=== PATIENT | male | born 1950 | race Caucasian/White ===

== ENCOUNTER 2016-09-07 07:48 | Inpatient (IN) | payer MEDICARE ==
[2016-09-01 14:50] LABS: HEMOGLOBIN 13.3 g/dL (13.6-17.8)
[2016-09-01 14:52] LABS: HEMATOCRIT 39.2 % (40.0-51.0)
[2016-09-01 15:05] LABS: BUN (BLOOD UREA NITROGEN) 28 MG/DL (6-23); CALCIUM, SERUM 9.3 MG/DL (8.5-10.4); CHLORIDE, SERUM 103 MMOL/L (96-112); CO2 (CARBON DIOXIDE) 30 MMOL/L (24-34); CREATININE 1.75 MG/DL (0.70-1.30); GFR AFRICAN AMERICAN 46 ML/MIN (>=60); GFR NON AFRICAN AMERICAN 39 ML/MIN (>=60); POTASSIUM, SERUM 4.8 MMOL/L (3.5-5.3); SODIUM, SERUM 139 MMOL/L (135-148)
[2016-09-01 15:06] LABS: GLUCOSE, SERUM 180 MG/DL (60-99)
--- NOTE | ~2016-09-07 | EEG ---
Electroencephalogram [place] [address] [place]. [address] NAME: CLAUDIA GUILLEN : 49 STATUS : DIS IN PAT#: [id number] AGE: 66 ADM/REG DATE : 09/07/16 MR#: [id number] REPORT SERV DATE: 09/27/16 DICTATED BY: JUVENTINO FOURNIER DATE: 09/27/16 REPORT STATUS : Draft TRANSCRIBED BY: MODL DATE: 09/27/16 ELECTROENCEPHALOGRAPHY REPORT REQUESTING PHYSICIAN: Momo Andino D.O. INTERPRETING PHYSICIAN: Juventino Fournier MD. EEG NUMBER: [id number]. AGE: 66. REASON FOR EEG: Abnormal previous EEG comparison. 23 surface electrodes, 10-20 international placement was used. The patient was noted to be drowsy and asleep throughout the study. Photic stimulation was performed. REASON FOR EEG: Hypersomnolence, rule out seizures. 23 surface electrodes, 10-20 international placement was used. The background activity consisted of moderate voltage to higher voltage theta range activity of 6 cycles per second located in the posterior head regions and the patient appeared extremely somnolent, snored throughout the recording. During the more alert portion of the recording, his background activity was 8 cycles per second. No significant asymmetry of cerebral activity was present. No paroxysmal epileptiform features were noted during this study. IMPRESSION: THE PATIENT APPEARED TO BE DROWSY AND ASLEEP THROUGHOUT THE RECORDING. PERSISTENT SNORING WAS SEEN, SUGGESTIVE OF PRESENCE OF UNDERLYING SLEEP APNEA. NO PAROXYSMAL OR EPILEPTIFORM ACTIVITY WAS SEEN. RECOMMEND FORMAL POLYSOMNOGRAPHY STUDY TO RULE OUT OBSTRUCTIVE SLEEP APNEA. CLINICAL CORRELATION IS RECOMMENDED. CORNELIA/GUZMAN Juventino Fournier MD / [id number] CC: Samantha Howard M.D.
--- NOTE | ~2016-09-07 | EEG ---
Electroencephalogram [place] [place]. [address] NAME: CLAUDIA GUILLEN : 49 STATUS : ADM IN PAT#: [id number] AGE: 66 ADM/REG DATE : 09/07/16 MR#: [id number] REPORT SERV DATE: 09/09/16 DICTATED BY: JUVENTINO FOURNIER DATE: 09/09/16 REPORT STATUS : Draft TRANSCRIBED BY: MODL DATE: 09/09/16 REQUESTING PHYSICIAN: Dr. Juventino Fournier. INTERPRETING PHYSICIAN: Dr. Juventino Fournier. EEG NUMBER: #[id number], repeat EEG. LOCATION OF THE PATIENT: [facility] bed 10. Repeat EEG was obtained to compare to the study performed on 09/08/2016, which showed presence of severe encephalopathy and paroxysmal seizure activity status epilepticus. Today's EEG of 09/09/2016 will be described below. DESCRIPTION: The background activity consisted of poorly organized, moderate to high voltage 4-6 cycles per second located in the posterior head regions. The salient feature of this EEG was presence of continuous slowing of cerebral activity with biphasic and triphasic waveforms predominantly seen in anterior head regions. No significant asymmetry of cerebral activity was present. The patient did not show any evidence of tonic-clonic activity during this EEG. Photic stimulation did not produce changes or additional abnormalities. The patient appeared asleep through most of the study, intermittent apneas were observed. The patient's cardiac monitor technician showed sinus rhythm of approximately 82 beats per minute. IMPRESSION: MARKEDLY ABNORMAL EEG CHARACTERIZED BY PRESENCE OF DIFFUSE SLOWING OF CEREBRAL ACTIVITY, PRESENCE OF BIPHASIC AND TRIPHASIC WAVEFORMS. NO SIGNIFICANT ASYMMETRY OF CEREBRAL ACTIVITY WAS PRESENT SOME IMPROVEMENT COMPARED TO THE STUDY OF 09/08/2016 WAS OBSERVED. THIS EEG IS COMPATIBLE WITH PRESENCE OF DIFFUSE CEREBRAL DYSFUNCTION- ENCEPHALOPATHY MOST LIKELY OF METABOLIC ORIGIN. CLINICAL CORRELATION IS RECOMMENDED. CORNELIA/GUZMAN Juventino Fournier MD / [id number] CC: Samantha Howard M.D.
--- NOTE | ~2016-09-07 | DS ---
Discharge Summary [facility] [address] [place]. [address] NAME: CLAUDIA GUILLEN : 49 STATUS : DIS IN PAT#: [id number] AGE: 66 ADM/REG DATE : 09/07/16 MR#: [id number] REPORT SERV DATE: 09/26/16 DICTATED BY: MOMO SHAIKH DATE: 09/23/16 REPORT STATUS : Draft TRANSCRIBED BY: MODL DATE: 09/23/16 Data Collection from hospitalization DISCHARGE DIAGNOSIS(ES): 1. Grade 1 spondylolisthesis at L5-S1. 2. Severe disk degeneration at L4-5 and L5-S1. 3. Severe foraminal stenosis at L4-5 and L5-S1. 4. Insulin-dependent diabetes. 5. Hypertension. 6. Hypercholesterolemia. 7. Gastroesophageal reflux disease. 8. Rheumatoid arthritis. 9. Osteoarthritis. 10.Coronary artery disease. CONSULTATIONS: Juventino Fournier MD and Jon Nuñez M.D. PROCEDURES PERFORMED: 1. Microscopic and navigation-assisted surgery; left L4-5 and L5-S1 hemilaminectomy, foraminotomy, and facetectomy; transforaminal diskectomy; Sharif posterior column osteotomy at L4 and L5; anterior interbody cage insertion; posterior-lateral interbody fusion with local bone graft and allograft; posterior percutaneous Voyager segmental instrumentation at L4-S1, 09/07/2016. 2. MRI of the brain without contrast, 09/08/2016. 3. MRAG of the head without contrast, 09/08/2016. 4. Carotid blood flow study, 09/09/2016. 5. Electroencephalogram 09/09/2016, electroencephalogram 09/08/2016. PATHOLOGY: Bone and soft tissue, lumbar spine - nonspecific degenerative changes. MEDICATIONS: Lipitor 40 mg at bedtime, Coreg 6.25 mg twice a day as instructed, Colace 100 mg twice a day, Cardura 1 mg daily, vitamin D 50,000 units every seven days as instructed, Neurontin 200 mg every 8 hours, NovoLog injection insulin as instructed, Zantac 100 mg twice a day, Keppra 1000 mg every 12 hours as instructed, Robaxin 500 mg every 8 hours, Provigil 100 mg at 8 a.m. and noon, Singulair 10 mg every morning, Prilosec 40 mg every morning, Aldactone 12.5 mg daily, Levemir 20 units subcutaneously at bedtime, and hydralazine 25 mg three times a day as needed for systolic blood pressure of greater than 170. CONDITION AT DISCHARGE: Stable. DISPOSITION: The patient was discharged to [facility] on a diabetic diet with activities as instructed. He would follow up with Dr. Gao on 11/10/[address] Shaikh, and physician's medical assistant instructor, Yesenia, one week following discharge. HOSPITAL COURSE: This is a 66-year-old man who has been seen in the clinic for the past 2- 1/2 years. He has well-known grade 1 spondylolisthesis at L5-S1. He has severe foraminal stenosis at L5-S1. He also has severe disk degeneration and collapse of the disk space and moderate to severe foraminal stenosis at L4-5. He had tried conservative care of all types Discharge Summary [address] [place]. [address] NAME: CLAUDIA GUILLEN : 49 STATUS : DIS IN PAT#: [id number] AGE: 66 ADM/REG DATE : 09/07/16 MR#: [id number] REPORT SERV DATE: 09/26/16 DICTATED BY: MOMO SHAIKH DATE: 09/23/16 REPORT STATUS : Draft TRANSCRIBED BY: GUZMAN DATE: 09/23/16 and had failed. Treatment options were discussed, and it was elected to proceed with surgical intervention. He was admitted to the hospital at this time for further evaluation and treatment. Upon admission, he was taken to the operating room where he underwent the above-mentioned procedure. He tolerated this well, and there were no complications. On postop day #1, he was doing okay. His legs felt good. He was changed to oral medications. He was seen in consultation by Dr. Juventino Fournier. An electroencephalogram has been performed after the patient had developed episodes of poor responsiveness, confusion, and hypersomnolence. The EEG showed severely abnormal pattern compatible with encephalopathy of metabolic origin with episodes of intermittent high-voltage paroxysmal epileptiform discharges. These discharges corresponded to the time when the patient would intermittently have eye blinking and would have episodes of poor verbal responsiveness. 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 Differential diagnosis includes metabolic derangement with cause to be determined. BUN and creatinine did not point to the renal dysfunction. Liver function tests were going to be checked to rule out hepatic dysfunction. The patient was given Keppra and was going to receive Vimpat. The patient has a history of obstructive sleep apnea and had not been using his CPAP. We were going to rule out aspiration pneumonia. Repeat EEG was going to be performed. MRI of the brain and MRA of the neck and brain would be obtained. The patient was also seen by Dr. Jon Nuñez regarding medical management. He has been transferred to the [facility]. The patient was unable to give any history whatsoever. He would awaken briefly and then soon develop fluttering of the eyelids and lost consciousness. Sometimes, he would fall asleep in mid sentence. Ictal spikes were identified on the encephalogram when this would happen. White count was 10,000. We would follow his oxygen constantly in the [facility] and try to avoid oxygen toxicity. He was evaluated by Physical Therapy. An MRI of the brain without contrast was performed as well as an MRAG of the head without contrast. On 09/09/2016, he was still having seizure activity. Creatinine level was 1.76. He had been on CPAP overnight. DAWOOD hose were in place. A carotid blood flow study was performed as well as a repeat EEG. The EEG was markedly abnormal characterized by the presence of continuous diffuse slowing compatible with metabolic encephalopathy and status epilepticus. Next day, he was feeling better. He had been seizure-free for almost 24 hours. He was tolerating oral intake. His insulin was increased. He denied any pain. Keppra and Vimpat were continued. He remained on Provigil. Lipitor was also continued. The next day, he was more alert. He was conversant. He seemed to be doing better. On 09/12/2016, the patient had been transferred back to the [facility]. He had been very convolutional and confused. His vitamin D level was very low. Vitamin D supplementation was going to be provided. He did not use the CPAP the previous evening. Cardura was added. As his blood pressure had increased, NovoLog was also increased. Creatinine level was 1.47. The next day, he was doing okay. He had no new problems. Homans sign was negative. He was evaluated by Occupational Therapy. He voiced no complaints. He had no edema. Discharge planning was performed. Discharge Summary [place] [id number] [facility] [place]. [address] NAME: CLAUDIA GUILLEN : 49 STATUS : DIS IN PAT#: [id number] AGE: 66 ADM/REG DATE : 09/07/16 MR#: [id number] REPORT SERV DATE: 09/26/16 DICTATED BY: MOMO SHAIKH DATE: 09/23/16 REPORT STATUS : Draft TRANSCRIBED BY: MODL DATE: 09/23/16 On 09/14/2016, he continued to do well. He had no chest pain. Discharge instructions were given. Due to his improved and stable condition, he was discharged to [facility] with the above-stated instructions. Information collected by: Jamila Wood I submit the above information as my discharge summary. TG/GUZMAN Momo Shaikh D.O. / [id number] CC: Samantha Howard M.D. [facility]
--- NOTE | ~2016-09-07 | OP ---
Record Of Operation [facility] [address] [place]. [address] NAME: CLAUDIA GUILLEN SR : 49 STATUS : ADM IN PAT#: [id number] AGE: 66 ADM/REG DATE : 09/07/16 MR#: [id number] REPORT SERV DATE: 09/07/16 DICTATED BY: MOMO SHAIKH DATE: 09/07/16 REPORT STATUS : Draft TRANSCRIBED BY: MODL DATE: 09/07/16 DATE OF PROCEDURE: 09/07/2016 PREOPERATIVE DIAGNOSES: 1. Grade 1 spondylolisthesis at L5-S1. 2. Severe disk degeneration at L4-5 and L5-S1. 3. Severe foraminal stenosis at L4-5 and L5-S1. POSTOPERATIVE DIAGNOSES: 1. Grade 1 spondylolisthesis at L5-S1. 2. Severe disk degeneration at L4-5 and L5-S1. 3. Severe foraminal stenosis at L4-5 and L5-S1. PROCEDURES: 1. Microscopic and navigation-assisted surgery. 2. Left L4-5 and L5-S1 hemilaminectomy, foraminotomy, facetectomy. 3. Transforaminal diskectomy. 4. Sharif posterior column osteotomy at L4 and L5. 5. Anterior interbody cage insertion. 6. Posterior-lateral interbody fusion with local bone graft and allograft. 7. Posterior percutaneous Voyager segmental instrumentation at L4-S1. TOP DYEING MACHINE LOADER: Kosta Duenas. ANESTHESIA: General. BLOOD LOSS: 100 mL. INDICATION FOR SURGERY: Indication for surgery and risks were explained. They are listed in last office note as well as history and physical. See that for detail. DESCRIPTION OF PROCEDURE: Antibiotic prophylaxis was given. Neurophysiology monitoring leads were inserted. The patient was brought to the operative suite. General anesthetic including endotracheal intubation were administered. Delgado catheter was placed with sterile technique. The patient was placed prone on a Luciano spine frame. Bony prominences were carefully padded. Thoracolumbar spine scrubbed with Hibiclens solution. DuraPrep was painted. Sterile drapes were applied. A small stab wound was carried out over the posterior-superior iliac spine on the right side. A percutaneous pin with navigational frame attached was inserted. The intraoperative CT scan with O-arm was obtained. CT information used to register the navigational system. With navigational assistance, I identified the L4-5 and L5-S1 level. Starting on the left side, I carried out approximately a 5 cm skin incision just lateral to the facet joint of L4-5 and L5-S1. I used the inferior aspect of the incision initially. I Record Of Operation [facility] [address] [place]. [address] NAME: CLAUDIA GUILLEN SR : 49 STATUS : ADM IN PAT#: [id number] AGE: 66 ADM/REG DATE : 09/07/16 MR#: [id number] REPORT SERV DATE: 09/07/16 DICTATED BY: MOMO SHAIKH DATE: 09/07/16 REPORT STATUS : Draft TRANSCRIBED BY: MODLucille DATE: 09/07/16 placed a blunt navigated probe through the fascia and muscle and docked over the facet joint of L5-S1. Muscle dilators were inserted followed by placement of a tubular retractor attached to an arm mount on the table. Microscope was sterilely draped and used throughout the remainder of the procedure. With navigational assistance, I identified the top of the pedicle of S1 and inferior pedicle of L5. I could see that in order to enter the disk space properly, I was going to need to create a posterior-superior sacral dome type of osteotomy. I used a Sharif technique. I took approximately 3 mm of the posterior aspect of the S1 pedicle as well as approximately 30% to 40% of the posterior-superior lip of the body of S1. I used a cutting bur, a mara bur, and then removed not only the superior aspect of the facet of S1 but also the inferior articular process of L5, the lamina of L5, and the remaining portion of the reparative tissue through the pars defect at L5. I was able to enter the disk space inferiorly and directed anteriorly. I was able to carry out a diskectomy with curettes, rongeurs, and disk miguelina. I then used an intradiscal trial. The wounds were irrigated. I determined the appropriate size cage was 10 mm in height x 28 mm in length. The interbody space was filled with local bone graft and allograft as well as a small dosage of protein. The cage was inserted through the midline against the anterior longitudinal ligament. Some additional posterolateral interbody grafting was carried out. The interbody space had been distracted and there was an indirect decompression on the right side. The retractor was then removed. The upper or cephalad portion of the skin incision was then utilized. I placed a blunt navigated probe through the fascia and muscle and docked over the facet joint of L4-5. I placed a tubular retractor. I carried out the same identical procedure with a hemilaminectomy, foraminotomy, facetectomy, and a Sharif osteotomy of the posterior column. I carried out a transforaminal diskectomy, intradiscal trial, interbody cage insertion, posterior-lateral interbody fusion as outlined previously. Finally, the retractor was removed. On the right side, I created another 5 cm skin incision just lateral to the facet joint of L4-S1 to match that on the left. I used a percutaneous Voyager pedicle tap and screw sales inspector. I tapped the pedicles of L4-5 and S1 bilaterally. Polyaxial Voyager screw with screw extenders inserted at L4-5 and S1 bilaterally. The contoured lordotic captured jose placed through the top portion of the screw extenders, reduced into the tulip of the pedicle screw, the set screws were inserted and tightened with a torque wrench providing rigid stability at L4-S1 bilateral. The screw extenders were removed. Intraoperative CT scan with O-arm repeated showing excellent position of all implants. After final irrigation, the myofascial layer was closed with interrupted #1 Vicryl suture. The subcutaneous tissue was closed with 2-0 Vicryl suture and 2-0 vertical mattress nylon suture was used for skin closure. Sterile dressings applied. The patient returned to supine position, awakened, extubated, and taken to recovery room in satisfactory condition after having tolerated procedure well. Sponge, needle, and instrument counts were correct. No intraoperative complications noted. Record Of Operation [place] [id number] [place]. [address] NAME: CLAUDIA GUILLEN CHOCO SR : 49 STATUS : ADM IN PAT#: [id number] AGE: 66 ADM/REG DATE : 09/07/16 MR#: [id number] REPORT SERV DATE: 09/07/16 DICTATED BY: MOMO SHAIKH DATE: 09/07/16 REPORT STATUS : Draft TRANSCRIBED BY: MODLucille DATE: 09/07/16 [place]/GUZMAN Momo Shaikh D.O. / [id number] CC: Momo Shaikh D.O.
--- NOTE | ~2016-09-07 | CN ---
Consultation Report [facility] [address] [place]. [address] NAME: CLAUDIA FELDMAN SR : 49 STATUS : ADM IN [facility]#: [id number] AGE: 66 ADM/REG DATE : 09/07/16 MR#: [id number] REPORT SERV DATE: 09/09/16 DICTATED BY: NISA MCKEON DATE: 09/08/16 REPORT STATUS : Draft TRANSCRIBED BY: MODL DATE: 09/08/16 CONSULTATION DATE OF CONSULTATION: 09/08/2016 REASON FOR CONSULTATION: Medical management. HISTORY OF PRESENT ILLNESS: Mr. Feldman is a 66-year-old male, type 2 diabetes, hypertension, obstructive sleep apnea, coronary artery disease, rheumatoid arthritis, status post L4-L5 diskectomy on 09/07/2016, 6 hours surgery under general anesthetic, had stable vital signs throughout and an unremarkable PACU course, estimated blood loss 100 mL. However the day following surgery, the patient began having increasing confusion found to be unresponsive, seen by Neurology who determined that patient was having nonconvulsive status epilepticus. He was transferred to the [facility], and I was consulted for medical management. The patient at interview was unable to give any history whatsoever. He awakens briefly in regards but soon develops fluttering of the eyelids and loss of consciousness, falling asleep sometimes mid sentence, ictal spikes are identified on the encephalogram when this happens. PAST MEDICAL HISTORY: As I mentioned above. He has history of multiple orthopedic surgeries in the past. MEDICATIONS: Include Norvasc, Lipitor, Coreg, Colace, Singulair, Protonix, Lyrica, Advair, Dilaudid, Diovan, Aldactone. ALLERGIES: NO ALLERGIES. FAMILY HISTORY: Positive for cancer. SOCIAL HISTORY: The patient has no tobacco, alcohol, or drug history. PHYSICAL EXAMINATION: VITAL SIGNS: On presentation, blood pressure 160/87, pulse 94, respiratory rate 17, saturating 98% on 4.5 L with T-max of 100. GENERAL: Awake and alert briefly and then falls asleep completely with difficulty arousing and then repeating the cycle. Fluttering of the eyelids noted but no cranial nerve deficits. HEENT: He had moist mucous membranes and somewhat crowded oropharynx. NECK: No jugular venous distention. No carotid bruits. No lymphadenopathy or goiter. CARDIAC EXAM: Regular rhythm. No murmurs, gallops, or rubs. LUNGS: Clear to auscultation bilaterally. Good excursion. ABDOMEN: Soft, nondistended, and nontender. Bowel sounds normoactive. EXTREMITIES: No cyanosis, clubbing, or edema. Good pulses and capillary refill. NEUROLOGIC: Had 5/5 strength in all four extremities. Normal sensory except for numbness in the feet. He had normal deep tender reflexes in the patella region. SKIN: Warm, dry. Consultation Report [address] [place]. [address] NAME: CLAUDIA FELDMAN : 49 STATUS : ADM IN PAT#: [id number] AGE: 66 ADM/REG DATE : 09/07/16 MR#: [id number] REPORT SERV DATE: 09/09/16 DICTATED BY: NISA MCKEON DATE: 09/08/16 REPORT STATUS : Draft TRANSCRIBED BY: GUZMAN DATE: 09/08/16 PSYCHIATRIC: He is appropriate. LABORATORY EVALUATION: The pH 7.42, pCO2 of 40, pO2 of 85, glucose is all within normal limits. Sodium 141, potassium 4.2, chloride 106, bicarb 31, BUN 22, chloride 1.6, glucose 113, white count 10,000, H and H of 11 and 34, platelets 181. ASSESSMENT AND PLAN: 1. Nonconvulsive status epilepticus. The patient has received intravenous Keppra as well as starting on Vimpat to suppress the ictal spikes. No previous epilepsy history is noted. Possible reaction to anesthetics. We note that the fever and febrile seizures are also a consideration, however, T-max of 100.1, likely in the setting of postoperative changes makes this less likely. The patient denies headache when he does wake up making acute meningitis postoperatively less likely as well, however, his fever curve should be followed closely. 2. Status post L-spine postoperative care per Dr. Andino. 3. For hypertension, blood pressures currently somewhat elevated. We will have hydralazine p.r.n., continue management as mentioned. 4. Diabetes. The patient has been held off Glucotrol, Lantus, and exenatide, for which he is going to start basal bolus insulin but we will hold the oral agents. 5. Sleep apnea. The patient has not taken BiPAP in the past. We will follow his oxygen constantly in the IMCU and try to avoid oxygen toxicity. We appreciate the opportunity to assist you in care of this patient. We will follow along with you. SAEED/GUZMAN Nisa Mckeon M.D. / [id number] CC: Samantha Howard M.D. Roza K. Adamczyk, MD
--- NOTE | ~2016-09-07 | EEG ---
Electroencephalogram [address] [address] NAME: CLAUDIA GUILLEN : 49 STATUS : ADM IN PAT#: [id number] AGE: 66 ADM/REG DATE : 09/07/16 MR#: [id number] REPORT SERV DATE: 09/09/16 DICTATED BY: JUVENTINO FOURNIER DATE: 09/09/16 REPORT STATUS : Draft TRANSCRIBED BY: MODL DATE: 09/09/16 ELECTROENCEPHALOGRAPHY REPORT AGE: 66. ORDERING PHYSICIAN: Liss Dowd DNP, [facility]-. REFERRING PHYSICIAN: Dr. Momo Andino. INTERPRETING PHYSICIAN: Juventino Fournier MD-Neurology. LOCATION OF THE PATIENT: Room 324. REASON FOR EEG: Altered mental status post lumbosacral spine surgery. The patient received anticonvulsant medications during this EEG for status epilepticus. 23 surface electrodes, 10-20 international placement was used. The patient was noted to be confused throughout the study. The patient would respond only in half sentences, would fall asleep readily. Intermittent abnormal blinking and eye movements were observed. The background activity consisted of very poorly organized high voltage delta and theta range activity scattered throughout. This activity was continuous with intermittent biphasic and triphasic waveforms seen anteriorly. High voltage bilaterally synchronous paroxysmal activity of spikes and poly spikes were seen during this recording. The patient appeared to have not regained responsiveness during the entire EEG study, 2 hours and 40 minute recording was obtained. The patient received 1500 mg of Keppra; 200 mg of Vimpat IV. Additional 500 mg of Keppra and 200 mg of IV Keppra were administered towards the end of the recording which produced response in disappearance of high voltage spike and polyspike activity. The patient's diffuse slowing with triphasic and biphasic waveforms continued despite the medications given during the recording. IMPRESSION: MARKEDLY ABNORMAL EEG CHARACTERIZED BY PRESENCE OF CONTINUOUS METABOLIC DERANGEMENT AND STATUS EPILEPTICUS. CLINICAL CORRELATION IS RECOMMENDED. REPEAT EEG IS RECOMMENDED AFTER 24 HOURS. CORNELIA/GUZMAN Juventino Fournier MD / [id number] CC: Samantha Howard, M.D.
--- NOTE | ~2016-09-07 | CN ---
Consultation Report [facility] [address] [place]. [address] NAME: CLAUDIA GUILLEN SR : 49 STATUS : ADM IN [facility]#: [id number] AGE: 66 ADM/REG DATE : 09/07/16 MR#: [id number] REPORT SERV DATE: 09/09/16 DICTATED BY: JUVENTINO FOURNIER DATE: 09/08/16 REPORT STATUS : Draft TRANSCRIBED BY: MODL DATE: 09/08/16 NEUROLOGICAL CONSULTATION CRITICAL CARE DATE OF CONSULTATION: 09/08/2016 LOCATION OF THE PATIENT: Room 324 and [facility]. HISTORY OF PRESENT ILLNESS: This is a 66-year-old white male, status post lumbosacral spine surgery and fusion, day 1, who was noted by the nursing staff and Dr. Andino' Service to have episodes of poor responsiveness, confusion, and hypersomnolence. Neurological consultation was requested. The patient was a poor historian, was falling asleep frequently, and appeared to have episodes of difficulty concentrating. The EEG which was requested showed severely abnormal pattern compatible with encephalopathy of metabolic origin with episodes of intermittent high voltage paroxysmal epileptiform discharges. These discharges corresponded to the time when the patient would intermittently have eye blinking and would have episodes of poor verbal responsiveness. PAST MEDICAL HISTORY: The patient has a history of diabetes mellitus. PHYSICAL EXAMINATION: VITAL SIGNS: The patient's blood pressure was 162/58, pulse was 102, respirations were 20, temperature not available, weight 244, height of 5 feet 10 inches. EYE: Sclerae were not icteric. Conjunctiva was pink. ENT: The patient was breathing through his mouth most of the time. HEENT showed tongue to be of normal size. Airway small. Mallampati class 3 to 4. NECK: Obese and short. ABDOMEN: Obese, soft, nontender. CHEST: Symmetrical. LUNGS: Clear. HEART: Auscultation of heart Regular S1, S2. Borderline sinus tachycardia. EXTREMITIES: Show no clubbing, cyanosis. There was no peripheral edema. The patient appeared to have old postsurgical scar on the knees, and the patient was difficult to maneuver, would not cooperate with turning to the side to inspect his surgical incision in the lumbar region. SKIN: Clear. No ecchymosis is noted. NEUROLOGICAL: Mental Status Exam: The patient was somnolent, arouse for 2 to 3 seconds, would fall asleep readily and intermittently, appeared dazed. Eye blinking was also observed, which appeared rhythmic. These episodes corresponded to the EEG activity of significant abnormality suggestive of epileptiform discharges. The patient was oriented to self, partially to place, not oriented to time, did not remember his age. His speech, for most part, appeared fluent. There was no evidence of aphasia as interruptions of speech were secondary to the patient's seizure discharges noted on the EEG. Cranial nerve examination 2 through 12 showed no evidence of focal abnormalities. Motor exam, muscle bulk and tone was normal. There was no abnormal tonic-clonic activity noted. The patient moved Consultation Report [place] [id number] [facility] [place]. [address] NAME: CLAUDIA GUILLEN : 49 STATUS : ADM IN [facility]#: [id number] AGE: 66 ADM/REG DATE : 09/07/16 MR#: [id number] REPORT SERV DATE: 09/09/16 DICTATED BY: JUVENTINO FOURNIER DATE: 09/08/16 REPORT STATUS : Draft TRANSCRIBED BY: GUZMAN DATE: 09/08/16 all four extremities to command and did not appear to have focal weakness. Deep tendon reflexes 1/2 in upper extremities, 0/2 in lower extremities. Babinski signs were not elicitable. Sensory exam was difficult to perform. The patient appeared to have mild sensory neuropathy distally. LABORATORY STUDIES: Sodium 141, potassium 4.2, chloride 106, BUN 22, creatinine 1.62, glucose 50 this a.m. Repeat fingerstick glucose was 175. IMPRESSION: Metabolic encephalopathy with nonconvulsive status epilepticus in the patient with no prior history of seizures. Differential diagnosis includes metabolic derangement cause to be determined. The patient's BUN and creatinine did not point to the renal dysfunction. We will order LFTs to rule out hepatic dysfunction. Underlying infectious causes which should also be considered if the patient has persistent status epilepticus, not responsive to medications. The patient received 1500 mg of Keppra and will receive 200 mg of Vimpat. The patient's oxygen saturation was slightly decreased on a pulse oximeter. His ABGs showed O2 of 86, CO2 of 40, normal pH. Bicarb, not available at this time. The patient has history of obstructive sleep apnea, has not been using his CPAP. Rule out aspiration pneumonia. We would also consider medical evaluation for additional complicated postsurgical complications, which include pulmonary emboli. From neurological standpoint, the patient needs to remain on Keppra 1000 mg q.12 hours and Vimpat 200 mg q.12 hours. We will repeat EEG in 24 hours. Infusion of Keppra decreased paroxysmal epileptiform discharges slightly; however, the underlying background consistent with encephalopathy unfortunately persisted. Continuous over 120 minute recording was obtained at the patient's bedside and was reviewed by me. Additional anticonvulsant medications will be considered if the patient does not have an appropriate response to above-mentioned anticonvulsant medications. MRI of the brain without and with contrast and MRA of neck and brain will be obtained. Continue telemetry, EKG monitoring, echocardiogram, laboratory studies should also include, hemoglobin A1c, serum lipid profile and additional labs to evaluate the patient's risk factor for stroke. Hospitalist Team was requested to follow the patient with us in the intermediate critical care unit. Thank you for allowing us to participate in this patient's care. CORNELIA/GUZMAN Juventino Fournier MD / [id number] CC: Momo Andino D.O.
--- NOTE | ~2016-09-07 | PREOPHP ---
PreOp History and Physical [facility] [address] [place]. [address] NAME: CLAUDIA GUILLEN SR : 49 STATUS : ADM IN PAT#: [id number] AGE: 66 ADM/REG DATE : 09/07/16 MR#: [id number] REPORT SERV DATE: 09/07/16 DICTATED BY: MOMO SHAIKH DATE: 09/07/16 REPORT STATUS : Draft TRANSCRIBED BY: MODL DATE: 09/07/16 CHIEF COMPLAINT: Back pain, left leg pain much greater than right. HISTORY OF PRESENT ILLNESS: This is a 66-year-old gentleman who has been to our clinic for the last two and half years. He has a well-known grade 1 spondylolisthesis at L5-S1. He has severe foraminal stenosis at L5-S1. He also has severe disk degeneration, collapse of the disk space, and mcyugdop-oh-xhirpi foraminal stenosis at L4-5. He has tried conservative care of all types and failed. He is brought to surgery now for microscopic and navigation-assisted left L4-5 and left and right L5-S1 hemilaminectomy, foraminotomy, facetectomy, transforaminal diskectomy, anterior interbody cage insertion, posterolateral interbody fusion with local bone graft and allograft, and posterior percutaneous Voyager instrumentation at L4-S1. Prior to surgery, risks, benefits, alternatives, and expectations have been explained. Consent form was signed. Please also note, because of the complexity of surgery and the need to identify correct level of surgery intraoperatively as well as desire to carry out the safest and most precise dissection, I feel that intraoperative navigation is mandatory. PAST MEDICAL HISTORY: Rheumatoid arthritis, osteoarthritis, coronary artery disease, cardiac stents, insulin-dependent diabetes mellitus, hypercholesterolemia, gastroesophageal reflux disease, and hypertension. PAST SURGICAL HISTORY: He has had a total hip arthroplasty, total knee arthroplasty, carpal tunnel release, bilateral shoulder arthroscopy, rotator cuff repair, revision knee arthroplasty on the left. He has had cholecystectomy and trigger finger releases. CURRENT MEDICATIONS: Include Prilosec, spironolactone, Carafate, Januvia, Diovan, Mobic, amlodipine, atorvastatin, carvedilol, clonidine, glyburide, Lyrica, dicyclomine. ALLERGIES: NONE. SOCIAL HISTORY: He is . Does not use any tobacco or alcohol. FAMILY HISTORY: His father had cancer, he is not sure of otherwise. REVIEW OF SYSTEMS: Currently denies chest pain, pressure, or shortness of breath. No recent change in bowel or bladder function. PHYSICAL EXAMINATION: VITAL SIGNS: He is 5 feet 10 inches, 240 pounds. BMI is 34.7. GENERAL: He is alert, cooperative, well oriented. HEENT: Grossly normal. LUNGS: Clear to auscultation. HEART: Rate is regular and rhythmic. ABDOMEN: Soft with good bowel sounds. He is obese. PreOp History and Physical [address] [address] NAME: CLAUDIA GUILLEN SR : 49 STATUS : ADM IN [facility]#: [id number] AGE: 66 ADM/REG DATE : 09/07/16 MR#: [id number] REPORT SERV DATE: 09/07/16 DICTATED BY: MOMO SHAIKH DATE: 09/07/16 REPORT STATUS : Draft TRANSCRIBED BY: GUZMAN DATE: 09/07/16 MUSCULOSKELETAL: The spine has somewhat of a palpable step-off in the midline at the bottom of the spine. He has pain with palpation in the midline over the lower lumbar spine. He has very limited range of motion. He cannot heel walk or toe walk. He has no leg length discrepancy or pelvic obliquity. Straight leg raising signs are negative. Femoral nerve stretch tests are negative. Motor strength except for the L5 innervated EHL is 4/5. Tibialis anterior is 4+/5. All others are 5/5. Patellar and Achilles reflexes are completely absent bilaterally. He has some stocking-glove decreased sensation from the mid legs distally including the ankles and feet. He also has a loss of vibratory sensation in the feet. Toes are downgoing. No ankle clonus found. Orthopedically, he has no pain with movement of hips, knees, or ankles. There are stigmata of prior surgeries of the hips and knee. He has weak pulses in both lower extremities. No abnormal skin lesions found. No adenopathy noted. ASSESSMENT AND RECOMMENDATIONS: As listed above. [place]/GUZMAN Momo Shaikh D.O. / [id number] CC: Samantha Howard M.D.
[~2016-09-07 07:48] MED LIST: ASA5GR PO; ASAB PO; AUG875 PO; BENTYL10 PO; BYDUREON2 MG SQ; CAT2 PO; COREG25 PO; DIOVAN HCT320 MG/25 PO; DIOVAN320 MG PO; FORTAMET1000 MG PO; GLUCOTRO10 PO; KOMBIGLYZE XR1 EAC2 PO; LANTUSCART SC; LIPITOR40 PO; LOVAZA1 GM PO; LYRICA75 PO; MOBIC15 MG PO; NITROQUICK0.4 MG SL; NORV10 PO; PCET PO; PLAVIX PO; PRILOSEC40 MG PO; SINGULAIR1 PO; SPIRO25 PO; TOUJEO SC; TRICOR145 PO; ULTRAM50 PO; VICTOZA18 MG/3 ML SC; ZANTAC 150 PO; ZANTAC150 MG PO; ZOCOR40 PO
[2016-09-07 15:09] LABS: BASOPHILS 0.4 %; BASOPHILS ABSOLUTE 0.04 10/3/uL (0.0-0.16); EOSINOPHILS 2.8 %; EOSINOPHILS ABSOLUTE 0.29 10/3/uL (0.0-0.53); HEMOGLOBIN 11.6 g/dL (13.6-17.8); IMMATURE GRANULOCYTES 0.7 %; IMMATURE GRANULOCYTES ABSOLUTE 0.07 10/3/uL (0.0-0.11); LYMPHOCYTES 26.5 %; LYMPHOCYTES ABSOLUTE 2.73 10/3/uL (0.67-4.30); MEAN CORPUS HGB CONC 33.5 g/dL (32.0-36.0); MEAN CORPUSCULAR HEMOGLOB 31.4 pg (26.0-34.0); MEAN CORPUSCULAR VOLUME 93.8 fL (80-100); MEAN PLATELET VOLUME 9.9 fL (9.2-13.0); MONOCYTES 6.5 %; MONOCYTES ABSOLUTE 0.67 10/3/uL (0.21-1.20); NEUTROPHILS 63.1 %; RBC DISTRIBUTION WIDTH 13.8 % (12.0-16.0); RED CELL COUNT 3.69 10/6/uL (4.7-6.1); WHITE BLOOD CELLS 10.3 10/3/uL (4.5-10.5)
[2016-09-07 15:11] LABS: HEMATOCRIT 34.6 % (40.0-51.0); MANUAL DIFF NO %; PLATELET COUNT 191 10/3/uL (150-400)
[2016-09-07 16:15] LABS: BUN (BLOOD UREA NITROGEN) 22 MG/DL (6-23); CALCIUM, SERUM 8.7 MG/DL (8.5-10.4); CHLORIDE, SERUM 106 MMOL/L (96-112); CO2 (CARBON DIOXIDE) 30 MMOL/L (24-34); CREATININE 1.62 MG/DL (0.70-1.30); GFR AFRICAN AMERICAN 50 ML/MIN (>=60); GFR NON AFRICAN AMERICAN 43 ML/MIN (>=60); GLUCOSE, SERUM 113 MG/DL (60-99); POTASSIUM, SERUM 4.2 MMOL/L (3.5-5.3); SODIUM, SERUM 141 MMOL/L (135-148)
[2016-09-08 04:54] LABS: BASOPHILS 0.2 %; BASOPHILS ABSOLUTE 0.02 10/3/uL (0.0-0.16); EOSINOPHILS 1.7 %; HEMATOCRIT 35.7 % (40.0-51.0); HEMOGLOBIN 11.9 g/dL (13.6-17.8); IMMATURE GRANULOCYTES 0.3 %; IMMATURE GRANULOCYTES ABSOLUTE 0.04 10/3/uL (0.0-0.11); LYMPHOCYTES 15.3 %; LYMPHOCYTES ABSOLUTE 1.79 10/3/uL (0.67-4.30); MANUAL DIFF NO %; MEAN CORPUS HGB CONC 33.3 g/dL (32.0-36.0); MEAN CORPUSCULAR HEMOGLOB 31.5 pg (26.0-34.0); MEAN CORPUSCULAR VOLUME 94.4 fL (80-100); MEAN PLATELET VOLUME 10.5 fL (9.2-13.0); MONOCYTES 8.6 %; MONOCYTES ABSOLUTE 1.01 10/3/uL (0.21-1.20); NEUTROPHILS 73.9 %; NEUTROPHILS ABSOLUTE 8.64 10/3/uL (2.02-8.40); PLATELET COUNT 195 10/3/uL (150-400); RBC DISTRIBUTION WIDTH 13.8 % (12.0-16.0); RED CELL COUNT 3.78 10/6/uL (4.7-6.1); WHITE BLOOD CELLS 11.7 10/3/uL (4.5-10.5)
[2016-09-08 05:09] LABS: BUN (BLOOD UREA NITROGEN) 19 MG/DL (6-23); CHLORIDE, SERUM 101 MMOL/L (96-112); CO2 (CARBON DIOXIDE) 28 MMOL/L (24-34); CREATININE 1.55 MG/DL (0.70-1.30); GFR AFRICAN AMERICAN 53 ML/MIN (>=60); GFR NON AFRICAN AMERICAN 46 ML/MIN (>=60); GLUCOSE, SERUM 122 MG/DL (60-99); POTASSIUM, SERUM 4.9 MMOL/L (3.5-5.3); SODIUM, SERUM 137 MMOL/L (135-148)
[2016-09-08 16:59] LABS: ALLENS TEST Pos; BE (BASE EXCESS) 0.9 MEQ/L (0 +/- 2.5); CARBOXYHEMOGLOBIN 0.6 % (0-3); DEVICE NC; HCO3 (ACTUAL BICARBONATE) 25.4 MEQ/L (23-27); INSTRUMENT SERIAL # 11843; METHEMOGLOBIN 0.2 % (0-3); O2 CONTENT 17.5 VOL% (18-24); PCO2 (CO2 TENSION) 40 MMHG (35-45); PO2 (O2 TENSION) 85 MMHG (79-93); SAMPLE Arterial; pH 7.42 (7.37-7.43)
[2016-09-08 19:23] LABS: CREATININE 1.63 MG/DL (0.70-1.30)
[2016-09-08 20:08] LABS: ALBUMIN 3.3 G/DL (3.5-5.0); DIRECT BILIRUBIN 0.2 MG/DL (0.0-0.4); INDIRECT BILIRUBIN(NOT ORDER) 0.9 MG/DL (0.1-0.9); PHOSPHORUS, SERUM 2.8 MG/DL (2.5-4.5); TOTAL BILIRUBIN 1.1 MG/DL (0-1.2); TOTAL PROTEIN 7.5 G/DL (6.0-8.5)
[2016-09-09 04:32] LABS: BASOPHILS 0.2 %; BASOPHILS ABSOLUTE 0.02 10/3/uL (0.0-0.16); EOSINOPHILS 0.3 %; EOSINOPHILS ABSOLUTE 0.03 10/3/uL (0.0-0.53); HEMATOCRIT 37.7 % (40.0-51.0); HEMOGLOBIN 12.5 g/dL (13.6-17.8); IMMATURE GRANULOCYTES 0.1 %; IMMATURE GRANULOCYTES ABSOLUTE 0.01 10/3/uL (0.0-0.11); LYMPHOCYTES 17.2 %; LYMPHOCYTES ABSOLUTE 1.95 10/3/uL (0.67-4.30); MANUAL DIFF NO %; MEAN CORPUS HGB CONC 33.2 g/dL (32.0-36.0); MEAN CORPUSCULAR HEMOGLOB 31.4 pg (26.0-34.0); MEAN CORPUSCULAR VOLUME 94.7 fL (80-100); MEAN PLATELET VOLUME 10.8 fL (9.2-13.0); MONOCYTES 9.1 %; MONOCYTES ABSOLUTE 1.03 10/3/uL (0.21-1.20); NEUTROPHILS 73.1 %; NEUTROPHILS ABSOLUTE 8.28 10/3/uL (2.02-8.40); PLATELET COUNT 158 10/3/uL (150-400); RBC DISTRIBUTION WIDTH 13.8 % (12.0-16.0); RED CELL COUNT 3.98 10/6/uL (4.7-6.1); WHITE BLOOD CELLS 11.3 10/3/uL (4.5-10.5)
[2016-09-09 04:48] LABS: BUN (BLOOD UREA NITROGEN) 21 MG/DL (6-23); CALCIUM, SERUM 8.8 MG/DL (8.5-10.4); CHLORIDE, SERUM 102 MMOL/L (96-112); CO2 (CARBON DIOXIDE) 26 MMOL/L (24-34); CREATININE 1.76 MG/DL (0.70-1.30); GFR AFRICAN AMERICAN 45 ML/MIN (>=60); GFR NON AFRICAN AMERICAN 39 ML/MIN (>=60); SODIUM, SERUM 134 MMOL/L (135-148)
[2016-09-09 04:49] LABS: GLUCOSE, SERUM 173 MG/DL (60-99)
[2016-09-09 04:50] LABS: POTASSIUM, SERUM 5.6 MMOL/L (3.5-5.3)
[2016-09-09 13:05] LABS: BUN (BLOOD UREA NITROGEN) 21 MG/DL (6-23); CALCIUM, SERUM 8.8 MG/DL (8.5-10.4); CHLORIDE, SERUM 103 MMOL/L (96-112); CO2 (CARBON DIOXIDE) 28 MMOL/L (24-34); CREATININE 1.55 MG/DL (0.70-1.30); GFR AFRICAN AMERICAN 53 ML/MIN (>=60); GFR NON AFRICAN AMERICAN 46 ML/MIN (>=60); GLUCOSE, SERUM 174 MG/DL (60-99); POTASSIUM, SERUM 4.6 MMOL/L (3.5-5.3); SODIUM, SERUM 136 MMOL/L (135-148)
[2016-09-10 06:10] LABS: BASOPHILS 0.3 %; BASOPHILS ABSOLUTE 0.03 10/3/uL (0.0-0.16); EOSINOPHILS 2.5 %; EOSINOPHILS ABSOLUTE 0.26 10/3/uL (0.0-0.53); HEMOGLOBIN 11.3 g/dL (13.6-17.8); IMMATURE GRANULOCYTES 0.4 %; IMMATURE GRANULOCYTES ABSOLUTE 0.04 10/3/uL (0.0-0.11); LYMPHOCYTES 13.9 %; LYMPHOCYTES ABSOLUTE 1.44 10/3/uL (0.67-4.30); MEAN CORPUS HGB CONC 33.8 g/dL (32.0-36.0); MEAN CORPUSCULAR HEMOGLOB 31.9 pg (26.0-34.0); MEAN CORPUSCULAR VOLUME 94.4 fL (80-100); MEAN PLATELET VOLUME 10.2 fL (9.2-13.0); MONOCYTES 7.4 %; MONOCYTES ABSOLUTE 0.76 10/3/uL (0.21-1.20); NEUTROPHILS 75.5 %; PLATELET COUNT 184 10/3/uL (150-400); RBC DISTRIBUTION WIDTH 13.4 % (12.0-16.0); RED CELL COUNT 3.54 10/6/uL (4.7-6.1); WHITE BLOOD CELLS 10.3 10/3/uL (4.5-10.5)
[2016-09-10 06:11] LABS: HEMATOCRIT 33.4 % (40.0-51.0); MANUAL DIFF NO %
[2016-09-10 06:28] LABS: BUN (BLOOD UREA NITROGEN) 21 MG/DL (6-23); CALCIUM, SERUM 9.4 MG/DL (8.5-10.4); CHLORIDE, SERUM 104 MMOL/L (96-112); CO2 (CARBON DIOXIDE) 26 MMOL/L (24-34); CREATININE 1.37 MG/DL (0.70-1.30); GFR AFRICAN AMERICAN 61 ML/MIN (>=60); GFR NON AFRICAN AMERICAN 53 ML/MIN (>=60); GLUCOSE, SERUM 148 MG/DL (60-99); POTASSIUM, SERUM 4.3 MMOL/L (3.5-5.3); SODIUM, SERUM 138 MMOL/L (135-148)
[2016-09-10 12:05] LABS: FREE T4 1.14 NG/DL (0.76-1.46)
[2016-09-10 12:07] LABS: FOLATE 11.6 NG/ML (>5.2); ULTRASENSITIVE TSH 0.879 MCIU/ML (0.358-3.740)
[2016-09-10 13:42] LABS: ASCORBIC ACID (UR NOT ORDER) NEG (NEG); BILIRUBIN, URINE NEGATIVE (NEG); KETONE, URINE 20 MG/DL (NEG); LEUKOCYTE ESTERASE(NOT OR NEG (NEG); WBC (NOT ORDERED) (RFLEX) < 1 (0-5)
[2016-09-12 06:59] LABS: BASOPHILS 0.7 %; BASOPHILS ABSOLUTE 0.05 10/3/uL (0.0-0.16); EOSINOPHILS 3.2 %; EOSINOPHILS ABSOLUTE 0.23 10/3/uL (0.0-0.53); HEMATOCRIT 33.3 % (40.0-51.0); HEMOGLOBIN 11.2 g/dL (13.6-17.8); IMMATURE GRANULOCYTES 0.3 %; IMMATURE GRANULOCYTES ABSOLUTE 0.02 10/3/uL (0.0-0.11); LYMPHOCYTES 21.9 %; LYMPHOCYTES ABSOLUTE 1.57 10/3/uL (0.67-4.30); MEAN CORPUS HGB CONC 33.6 g/dL (32.0-36.0); MEAN CORPUSCULAR HEMOGLOB 31.5 pg (26.0-34.0); MEAN CORPUSCULAR VOLUME 93.8 fL (80-100); MEAN PLATELET VOLUME 10.7 fL (9.2-13.0); MONOCYTES 9.8 %; NEUTROPHILS 64.1 %; NEUTROPHILS ABSOLUTE 4.59 10/3/uL (2.02-8.40); PLATELET COUNT 204 10/3/uL (150-400); RBC DISTRIBUTION WIDTH 13.4 % (12.0-16.0); RED CELL COUNT 3.55 10/6/uL (4.7-6.1); WHITE BLOOD CELLS 7.2 10/3/uL (4.5-10.5)
[2016-09-12 07:01] LABS: MANUAL DIFF NO %
[2016-09-12 08:24] LABS: CALCIUM, SERUM 8.9 MG/DL (8.5-10.4); CHLORIDE, SERUM 101 MMOL/L (96-112); CO2 (CARBON DIOXIDE) 28 MMOL/L (24-34); CREATININE 1.47 MG/DL (0.70-1.30); GFR AFRICAN AMERICAN 56 ML/MIN (>=60); GFR NON AFRICAN AMERICAN 49 ML/MIN (>=60); POTASSIUM, SERUM 4.3 MMOL/L (3.5-5.3); SODIUM, SERUM 138 MMOL/L (135-148)
[2016-09-12 08:25] LABS: BUN (BLOOD UREA NITROGEN) 31 MG/DL (6-23); GLUCOSE, SERUM 209 MG/DL (60-99)
== END 2016-09-14 19:02 | DRG 459 ==
LOC: SDC/OF 07:48 → PACU 15:02 → 3SO 16:16 → IMCU 09-08 17:26 → 1SO 09-10 19:35
PROVIDERS: Nurse Practitioner Gerontology; Orthopaedic Surgery Orthopaedic Surgery of the Spine
PROC: 4A11X4G Monitoring of Peripheral Nervous Electrical Activity, Intraoperative, External Approach (ICD-10-PCS; 2016-09-07)
PROC: 0SG00AJ Fusion of Lumbar Vertebral Joint with Interbody Fusion Device, Posterior Approach, Anterior Column, Open Approach (ICD-10-PCS; principal; 2016-09-07 09:30)
PROC: 0ST20ZZ Resection of Lumbar Vertebral Disc, Open Approach (ICD-10-PCS; 2016-09-07 09:30)
PROC: 0SG0071 Fusion of Lumbar Vertebral Joint with Autologous Tissue Substitute, Posterior Approach, Posterior Column, Open Approach (ICD-10-PCS; 2016-09-07 09:30)
PROC: 0SG3071 Fusion of Lumbosacral Joint with Autologous Tissue Substitute, Posterior Approach, Posterior Column, Open Approach (ICD-10-PCS; 2016-09-07 09:30)
DX: M51.16 Intervertebral disc disorders with radiculopathy, lumbar region (principal); G93.41 Metabolic encephalopathy; I10 Essential (primary) hypertension; M48.06 Spinal stenosis, lumbar region; M51.36 Other intervertebral disc degeneration, lumbar region; I25.10 Atherosclerotic heart disease of native coronary artery without angina pectoris; J45.909 Unspecified asthma, uncomplicated; E11.9 Type 2 diabetes mellitus without complications; K21.9 Gastro-esophageal reflux disease without esophagitis; G47.33 Obstructive sleep apnea (adult) (pediatric); E78.00 Pure hypercholesterolemia, unspecified; N28.9 Disorder of kidney and ureter, unspecified; M06.9 Rheumatoid arthritis, unspecified; Z79.4 Long term (current) use of insulin; Z79.84 Long term (current) use of oral hypoglycemic drugs; Z79.1 Long term (current) use of non-steroidal anti-inflammatories (NSAID); Z79.899 Other long term (current) drug therapy; Z98.61 Coronary angioplasty status
CPT/HCPCS: 36415; 36600; 70544; 70547; 70551; 71010; 74000; 80048; 80076; 81001; 82140; 82306; 82565; 82607; 82746; 82805; 82962; 83735; 84100; 84439; 84443; 84481; 84520; 85014; 85018; 85025; 85730; 86850; 86900; 86901; 87641; 88304; 88311; 93005; 93304; 93880; 94660; 95813; 95816; 95819; 97110-GP; 97163-GP; 97164-GP; 97166-GO; 97530-GP; 97535-GO; A9270-GY; C1713; C8929; C9254; G8978-CM-GP; G8979-CK-GP; G8987-CK-GO; G8988-CJ-GO; J0360; J0690; J1170; J1644; J1953; J2250; J2405; J2710; J3010; J3370; J3475; Q9957

== ENCOUNTER 2016-09-22 13:06 | Emergency (ER) | payer MEDICARE ==
[2016-09-22 14:04] LABS: BASOPHILS 0.3 %; BASOPHILS ABSOLUTE 0.03 10/3/uL (0.0-0.16); EOSINOPHILS 1.8 %; EOSINOPHILS ABSOLUTE 0.17 10/3/uL (0.0-0.53); HEMATOCRIT 34.7 % (40.0-51.0); HEMOGLOBIN 11.5 g/dL (13.6-17.8); IMMATURE GRANULOCYTES 0.4 %; IMMATURE GRANULOCYTES ABSOLUTE 0.04 10/3/uL (0.0-0.11); LYMPHOCYTES 19.3 %; LYMPHOCYTES ABSOLUTE 1.79 10/3/uL (0.67-4.30); MANUAL DIFF NO %; MEAN CORPUS HGB CONC 33.1 g/dL (32.0-36.0); MEAN CORPUSCULAR HEMOGLOB 30.8 pg (26.0-34.0); MEAN PLATELET VOLUME 9.5 fL (9.2-13.0); MONOCYTES 5.3 %; MONOCYTES ABSOLUTE 0.49 10/3/uL (0.21-1.20); NEUTROPHILS 72.9 %; NEUTROPHILS ABSOLUTE 6.77 10/3/uL (2.02-8.40); PLATELET COUNT 402 10/3/uL (150-400); RBC DISTRIBUTION WIDTH 13.5 % (12.0-16.0); RED CELL COUNT 3.73 10/6/uL (4.7-6.1); WHITE BLOOD CELLS 9.3 10/3/uL (4.5-10.5)
[2016-09-22 14:15] LABS: ASCORBIC ACID (UR NOT ORDER) NEG (NEG); BILIRUBIN, URINE NEGATIVE (NEG); ER URINALYSIS TAT 0 Hrs 15 Mins; KETONE, URINE NEGATIVE (NEG); LEUKOCYTE ESTERASE(NOT OR NEG (NEG); NITRITE (URINE) NEG (NEG); WBC (NOT ORDERED) (RFLEX) 1 (0-5)
[2016-09-22 14:21] LABS: A/G RATIO 0.8 (0.7-1.9); ALBUMIN 3.3 G/DL (3.5-5.0); ALKALINE PHOSPHATASE 149 U/L (45-117); BUN (BLOOD UREA NITROGEN) 19 MG/DL (6-23); CALCIUM, SERUM 9.4 MG/DL (8.5-10.4); CHLORIDE, SERUM 101 MMOL/L (96-112); CO2 (CARBON DIOXIDE) 31 MMOL/L (24-34); CREATININE 1.47 MG/DL (0.70-1.30); GFR AFRICAN AMERICAN 56 ML/MIN (>=60); GFR NON AFRICAN AMERICAN 49 ML/MIN (>=60); GLOBULIN 4.3 G/DL (2.5-4.1); GLUCOSE, SERUM 192 MG/DL (60-99); POTASSIUM, SERUM 4.7 MMOL/L (3.5-5.3); SGOT(AST) 24 U/L (5-40); SGPT(ALT) 45 U/L (5-65); SODIUM, SERUM 137 MMOL/L (135-148); TOTAL BILIRUBIN 0.4 MG/DL (0-1.2); TOTAL PROTEIN 7.6 G/DL (6.0-8.5); TROPONIN I <0.02 NG/ML (<0.05)
== END 2016-09-22 15:50 | disposition home or self-care (01) ==
LOC: ER 13:06
PROVIDERS: Nurse Practitioner
DX: R11.2 Nausea with vomiting, unspecified (principal); D64.9 Anemia, unspecified; E11.9 Type 2 diabetes mellitus without complications; I10 Essential (primary) hypertension; G47.30 Sleep apnea, unspecified; Z98.61 Coronary angioplasty status; Z79.4 Long term (current) use of insulin; Z79.899 Other long term (current) drug therapy
CPT/HCPCS: 80053; 81001; 83690; 84484; 85025; 99284